=== PATIENT | male | born 1945 | race American Indian/Alaskan Native ===

== ENCOUNTER 2018-06-04 11:02 | Observation (INO) | payer MEDICARE ==
--- NOTE | 2018-06-04 12:02 | Emergency Department Report ---
HPI - General Chief Complaint: Chest Pain Time Seen by Provider: 06/04/18 11:36 - HPI HPI: Room 7 The patient is a 72-year-old male presenting with a chief complaint of chest pain. The patient states he developed left-sided chest pain that is sharp in n ature last night. Patient admits to shortness of breath, nausea/vomiting and diaphoresis with his chest pain. The patient states he took nitroglycerin which helped somewhat. Patient appears confused and is not oriented to place or year. Patient is oriented to self Location: Chest Duration: Intermittent since last night Quality: Sharp Severity: Moderate Modifying factors: [see above] Context: [see above] Mode of transportation: [not driving] ED Past Medical Hx - Past Medical History Hx Hypertension: Yes Hx CVA: Yes Hx Diabetes: Yes - Surgical History Past Surgical History?: No - Family History Family history: no significant - Social History Smoking Status: Never Smoker Substance Use Type: None - Medications Home Medications: Home Medications Medication Instructions Recorded Confirmed Last Taken Type Aspirin [Aspirin BABY CHEW TAB] 81 mg PO QDAY 06/04/18 06/04/18 Unknown History Lisinopril [Zestril TAB] 10 mg PO QDAY 06/04/18 06/04/18 Unknown History Metoprolol [Lopressor] 12.5 mg PO BID 06/04/18 06/04/18 Unknown History metFORMIN [Glucophage] 500 mg PO BIDWM 06/04/18 06/04/18 Unknown History ED Review of Systems ROS: Stated complaint: ALTERED Other details as noted in HPI Constitutional: diaphoresis Eyes: denies: eye pain ENT: denies: throat pain Respiratory: shortness of breath Cardiovascular: chest pain Endocrine: no symptoms reported Gastrointestinal: nausea, vomiting Musculoskeletal: denies: back pain Neurological: confusion. denies: headache Physical Exam - Physical Exam Vital Signs: Vital Signs 06/04/18 06/04/18 06/04/18 11:47 11:52 11:53 Temperature 98.5 F 98.5 F Pulse Rate 60 88 Respiratory 20 20 20 Rate Blood Pressure 118/61 Blood Pressure 118/61 [Left] O2 Sat by Pulse 100 100 100 Oximetry Physical Exam: GENERAL: The patient is well-developed well-nourished male lying on stretcher not appearing to be in acute distress. [] HEENT: Normocephalic. Atraumatic. Extraocular motions are intact. Patient has moist mucous membranes. NECK: Supple. Trachea midline CHEST/LUNGS: Clear to auscultation. There is no respiratory distress noted. HEART/CARDIOVASCULAR: Regular. There is no tachycardia. There is no gallop rub or murmur. ABDOMEN: Abdomen is soft, nontender. Patient has normal bowel sounds. There is no abdominal distention. SKIN: There is no rash. There is no edema. There is no diaphoresis. NEURO: The patient is awake, alert, and oriented. The patient is cooperative. The patient has no focal neurologic deficits. The patient has normal speech. Cranial nerves II through XII grossly intact MUSCULOSKELETAL: There is no evidence of acute injury. ED Course Vital Signs 06/04/18 06/04/18 06/04/18 11:47 11:52 11:53 Temperature 98.5 F 98.5 F Pulse Rate 60 88 Respiratory 20 20 20 Rate Blood Pressure 118/61 Blood Pressure 118/61 [Left] O2 Sat by Pulse 100 100 100 Oximetry ED Medical Decision Making - Lab Data Result diagrams: 06/04/18 12:01 06/04/18 12:01 Laboratory Tests 06/04/18 06/04/18 06/04/18 12:01 12:01 12:01 WBC 5.2 RBC 4.20 Hgb 13.8 Hct 40.9 MCV 98 H MCH 33 H MCHC 34 RDW 13.4 Plt Count 125 L Lymph % (Auto) 16.1 Oxford % (Auto) 11.1 H Eos % (Auto) 1.8 Baso % (Auto) 0.5 Lymph # 0.8 L Oxford # 0.6 Eos # 0.1 Baso # 0.0 Seg Neutrophils % 70.5 H Seg Neutrophils # 3.7 PT 14.4 INR 1.05 APTT 31.9 VBG pH Sodium 139 Potassium 4.6 Chloride 105.1 Carbon Dioxide 21 L Anion Gap 18 BUN 13 Creatinine 0.9 Estimated GFR > 60 BUN/Creatinine Ratio 14 Glucose 95 Calcium 9.1 Total Bilirubin 0.50 AST 20 ALT 14 Alkaline Phosphatase 45 Ammonia Total Creatine Kinase 158 CK-MB (CK-2) 4.5 H CK-MB (CK-2) Rel Index 2.8 Troponin T < 0.010 NT-Pro-B Natriuret Pep 307.4 Total Protein 7.2 Albumin 3.7 L Albumin/Globulin Ratio 1.1 06/04/18 06/04/18 12:01 12:07 WBC RBC Hgb Hct MCV MCH MCHC RDW Plt Count Lymph % (Auto) Oxford % (Auto) Eos % (Auto) Baso % (Auto) Lymph # Oxford # Eos # Baso # Seg Neutrophils % Seg Neutrophils # PT INR APTT VBG pH 7.482 H Sodium Potassium Chloride Carbon Dioxide Anion Gap BUN Creatinine Estimated GFR BUN/Creatinine Ratio Glucose Calcium Total Bilirubin AST ALT Alkaline Phosphatase Ammonia 32.0 Total Creatine Kinase CK-MB (CK-2) CK-MB (CK-2) Rel Index Troponin T NT-Pro-B Natriuret Pep Total Protein Albumin Albumin/Globulin Ratio - EKG Data -: EKG Interpreted by Me EKG shows normal: sinus rhythm Rate: bradycardia (54 bpm) - EKG Data When compared to previous EKG there are: previous EKG unavailable Interpretation: nonspecific ST-T wave kenny (T-wave inversion in lead 3, aVF) - Radiology Data Radiology results: report reviewed (chest x-ray, CT head), image reviewed (chest x-ray, CT head) interpreted by me: Chest [id number] left hemidiaphragm. No pneumothorax [facility] [address] [place] [address] XRay Report Signed Patient: ALEN DOSHI MR#: [id number] : 1945 Acct:[id number] Age/Sex: 72 / M ADM Date: 06/04/18 Loc: ED Attending Dr: Ordering Physician: SYEDA ANAYA MD Date of Service: 06/04/18 Procedure(s): XR chest 1V ap Accession Number(s): [id number] cc: SYEDA ANAYA MD Fluoro Time In Minutes: AP CHEST: HISTORY: chest pain No comparison. Mild hypoventilatory changes are suspected in the lower lung zones. The upper lung zones are clear. No pleural fluid or pneumothorax. Normal heart and mediastinal structures. IMPRESSION: Mild bibasilar atelectatic changes are suspected. No acute cardiopulmonary process. Transcribed By: TTR Dictated By: YO NICK JR, MD Electronically Authenticated By: YO NICK JR, MD Signed Date/Time: 06/04/18 1246 DD/ 1245 TD/TT: 06/04/18 1246 [facility] [address] [place] [address] Cat Scan Report Signed Patient: ALEN DOSHI MR#: [id number] : 1945 Acct:[id number] Age/Sex: 72 / M ADM Date: 06/04/18 Loc: ED Attending Dr: Ordering Physician: SYEDA ANAYA MD Date of Service: 06/04/18 Procedure(s): CT head/brain wo con Accession Number(s): [id number] cc: SYEDA ANAYA MD PROCEDURE: CT HEAD/BRAIN WO CON TECHNIQUE: Computerized tomography of the head was performed without contrast material. Coronal and sagittal reformatted images were provided. CT DOSE LENGTH PRODUCT: 1035.5 mGy-cm. HISTORY: confusion COMPARISONS: None currently available. FINDINGS: Decreased attenuation regions in the periventricular and subcortical white matter are nonspecific and may represent small vessel ischemic disease, encephalopathy, edema, or a demyelinating process. Small vessel ischemic disease (leukoaraiosis) favored. Small to moderate area of chronic encephalomalacia in the left parietal lobe probably related to prior ischemia. Smaller similar finding noted within the right frontal parietal region. Vascular calcifications. There is no evidence for acute ischemia. There is no hemorrhage. There is no midline shift. There is no hydrocephalus. There is no mass. Age appropriate frey-white matter attenuation is noted. There is no calvarial fracture. The temporal bones demonstrate aerated mastoid air cells. The middle ears appear unremarkable. Paranasal sinuses are unremarkable. Globes are intact. IMPRESSION: * No acute intracranial findings. * Chronic ischemic disease. This document is electronically signed by Rafita Royal MD., June 04 2018 02:02:14 PM ET Transcribed By: TYM Dictated By: RAFITA ROYAL MD Electronically Authenticated By: RAFITA ROYAL MD Signed Date/Time: 06/04/18 1404 DD/ 1312 TD/TT: 06/04/18 131 - Differential Diagnosis ACS, pericarditis, GERD, ICH Critical care attestation.: If time is entered above; I have spent that time in minutes in the direct care of this critically ill patient, excluding procedure time. ED Disposition Clinical Impression: Chest pain Disposition: DC-09 OP ADMIT IP TO THIS HOSP Is pt being admited?: Yes Does the pt Need Aspirin: Yes Condition: Fair Instructions: Chest Pain (ED) Referrals: [facility] [Other] - 3-5 Days Time of Disposition: 14:15 (hospitalist paged (Dr Sheehan))
[2018-06-04 12:17] LABS: Basophils % (Auto) 0.5 % (0.0-1.8); Eosinophils # (Auto) 0.1 K/mm3 (0.0-0.4); Eosinophils % (Auto) 1.8 % (0.0-4.3); Hematocrit 40.9 % (35.5-45.6); Hemoglobin 13.8 gm/dl (11.8-15.2); Lymphocytes # (Auto) 0.8 K/mm3 (1.2-5.4); Lymphocytes % (Auto) 16.1 % (13.4-35.0); Mean Corpuscular HGB Conc 34 % (32-34); Mean Corpuscular Volume 98 fl (84-94); Monocytes # (Auto) 0.6 K/mm3 (0.0-0.8); Monocytes % (Auto) 11.1 % (0.0-7.3); Platelet Count 125 K/mm3 (140-440); Red Cell Distribution Width 13.4 % (13.2-15.2)
[2018-06-04 12:28] LABS: INR 1.05 (0.87-1.13)
[2018-06-04 12:29] LABS: Partial Thromboplastin Time 31.9 Sec. (24.2-36.6)
[2018-06-04 12:50] LABS: Creatine Kinase MB 4.5 ng/mL (0.0-4.0)
--- NOTE | 2018-06-04 12:50 | XRay Report ---
AP CHEST: HISTORY: chest pain No comparison. Mild hypoventilatory changes are suspected in the lower lung zones. The upper lung zones are clear. No pleural fluid or pneumothorax. Normal heart and mediastinal structures. IMPRESSION: Mild bibasilar atelectatic changes are suspected. No acute cardiopulmonary process.
[2018-06-04 12:51] LABS: Alanine Aminotransferase 14 units/L (7-56); Albumin 3.7 g/dL (3.9-5); BUN/Creatinine Ratio 14; Blood Urea Nitrogen 13 mg/dL (9-20); Calcium 9.1 mg/dL (8.4-10.2); Hemolysis Index 64
--- NOTE | 2018-06-04 14:04 | Cat Scan Report ---
PROCEDURE: CT HEAD/BRAIN WO CON TECHNIQUE: Computerized tomography of the head was performed without contrast material. Coronal and s agittal reformatted images were provided. CT DOSE LENGTH PRODUCT: 1035.5 mGy-cm. HISTORY: confusion COMPARISONS: None currently available. FINDINGS: Decreased attenuation regions in the periventricular and subcortical white matter are nonspecific and may represent small vessel ischemic disease, encephalopathy, edema, or a demyelinating process. Smal l vessel ischemic disease (leukoaraiosis) favored. Small to moderate area of chronic encephalomalacia in the left parietal lobe probably related to prio r ischemia. Smaller similar finding noted within the right frontal parietal region. Vascular calcifications. There is no evidence for acute ischemia. There is no hemorrhage. There is no midline shift. There is no hydrocephalus. There is no mass. Age appropriate frey-white matter attenuation is noted. There is no calvarial fracture. The temporal bones demonstrate aerated mastoid air cells. The middle ears appear unremarkable. Paranasal sinuses are unremarkable. Globes are intact. IMPRESSION: * No acute intracranial findings. * Chronic ischemic disease. This document is electronically signed by Rafita Bender MD., June 04 2018 02:02:14 PM ET
[2018-06-04] MEDS ORDERED: ASPIRIN PO ONE (14:16)
[2018-06-04 14:28] LABS: Bilirubin,Urine NEG (Negative); Blood,Urine NEG (Negative); Color,Urine Yellow (Yellow); Protein,Urine <15 mg/dL mg/dL (Negative); WBC,Urine < 1.0 /HPF (0.0-6.0)
[2018-06-04] MEDS ORDERED: ZOFRAN IV ONE (16:15)
[2018-06-04] MEDS ORDERED: NORCO 5/325 PO ONE (16:16)
[2018-06-04] MEDS ORDERED: ASPIRIN ONE ×2 (16:25→16:46)
[2018-06-04] MEDS ORDERED: NORCO 5/325 ONE ×2 (16:25→16:47)
[2018-06-04] MEDS ORDERED: ZOFRAN ONE (16:30)
--- NOTE | 2018-06-04 22:26 | History and Physical Report ---
History of Present Illness Date of examination: 06/04/18 Date of admission: 06/04/18 14:21 Chief complaint: Chest pain since last night History of present illness: The patient is a 72-year-old male presenting with a chief complaint of chest pain. The patient states he developed left-sided chest pain that is sharp in nature last night. Patient admits to shortness of breath, nausea/vomiting and diaphoresis with his chest pain. The patient states he took nitroglycerin which helped somewhat. Patient appears confused and is not oriented to place or year. Patient is oriented to self Past Medical History Hypertension: Yes CVA: Yes Diabetes: Yes Surgical History Past Surgical History?: No Family History Family history: no significant Social History Smoking Status: Never Smoker Substance Use Type: None Medications Home Medications: Home Medications Medication Instructions Recorded Confirmed Last Taken Type Aspirin [Aspirin BABY CHEW TAB] 81 mg PO QDAY 06/04/18 06/04/18 Unknown History Lisinopril [Zestril TAB] 10 mg PO QDAY 06/04/18 06/04/18 Unknown History Metoprolol [Lopressor] 12.5 mg PO BID 06/04/18 06/04/18 Unknown History metFORMIN [Glucophage] 500 mg PO BIDWM 06/04/18 06/04/18 Unknown History Review of Systems ROS: Stated complaint: ALTERED Other details as noted in HPI Constitutional: diaphoresis Eyes: denies: eye pain ENT: denies: throat pain Respiratory: shortness of breath Cardiovascular: chest pain Endocrine: no symptoms reported Gastrointestinal: nausea, vomiting Musculoskeletal: denies: back pain Neurological: confusion. denies: headache Medications and Allergies Allergies Allergy/AdvReac Type Severity Reaction Status Date / Time No Known Allergies Allergy Unverified 06/04/18 11:44 Home Medications Medication Instructions Recorded Confirmed Last Taken Type Aspirin [Aspirin BABY CHEW TAB] 81 mg PO QDAY 06/04/18 06/04/18 Unknown History Lisinopril [Zestril TAB] 10 mg PO QDAY 06/04/18 06/04/18 Unknown History Metoprolol [Lopressor] 12.5 mg PO BID 06/04/18 06/04/18 Unknown History metFORMIN [Glucophage] 500 mg PO BIDWM 06/04/18 06/04/18 Unknown History Exam - Constitutional Vitals: Temp Pulse Resp BP Pulse Ox 98.3 F 63 20 117/63 98 06/04/18 20:30 06/04/18 20:30 06/04/18 20:30 06/04/18 20:30 06/04/18 20:30 General appearance: Present: no acute distress, well-nourished - EENT Eyes: Present: PERRL ENT: hearing intact, clear oral mucosa - Neck Neck: Present: supple, normal ROM - Respiratory Respiratory effort: normal Respiratory: bilateral: CTA - Cardiovascular Heart rate: 54 Rhythm: regular Heart Sounds: Present: S1 & S2. Absent: rub, click - Extremities Extremities: no ischemia, pulses intact, pulses symmetrical, No edema Peripheral Pulses: within normal limits - Abdominal General gastrointestinal: Present: soft, non-tender, non-distended, normal bowel sounds Male genitourinary: Present: normal - Rectal Rectal Exam: deferred - Integumentary Integumentary: Present: clear, warm, dry - Musculoskeletal Musculoskeletal: gait normal, strength equal bilaterally - Psychiatric Psychiatric: appropriate mood/affect, intact judgment & insight - Neurologic Neurologic: CNII-XII intact, moves all extremities - Allied Health Allied health notes reviewed: nursing, case management Results - Labs CBC & Chem 7: 06/04/18 12:01 06/04/18 12:01 Labs: Laboratory Last Values WBC 5.2 K/mm3 (4.5-11.0) 06/04/18 12:01 RBC 4.20 M/mm3 (3.65-5.03) 06/04/18 12:01 Hgb 13.8 gm/dl (11.8-15.2) 06/04/18 12:01 Hct 40.9 % (35.5-45.6) 06/04/18 12:01 MCV 98 fl (84-94) H 06/04/18 12:01 MCH 33 pg (28-32) H 06/04/18 12:01 MCHC 34 % (32-34) 06/04/18 12:01 RDW 13.4 % (13.2-15.2) 06/04/18 12:01 Plt Count 125 K/mm3 (140-440) L 06/04/18 12:01 Lymph % (Auto) 16.1 % (13.4-35.0) 06/04/18 12:01 Ashley % (Auto) 11.1 % (0.0-7.3) H 06/04/18 12:01 Eos % (Auto) 1.8 % (0.0-4.3) 06/04/18 12:01 Baso % (Auto) 0.5 % (0.0-1.8) 06/04/18 12:01 Lymph # 0.8 K/mm3 (1.2-5.4) L 06/04/18 12:01 Ashley # 0.6 K/mm3 (0.0-0.8) 06/04/18 12:01 Eos # 0.1 K/mm3 (0.0-0.4) 06/04/18 12:01 Baso # 0.0 K/mm3 (0.0-0.1) 06/04/18 12:01 Seg Neutrophils % 70.5 % (40.0-70.0) H 06/04/18 12:01 Seg Neutrophils # 3.7 K/mm3 (1.8-7.7) 06/04/18 12:01 PT 14.4 Sec. (12.2-14.9) 06/04/18 12:01 INR 1.05 (0.87-1.13) 06/04/18 12:01 APTT 31.9 Sec. (24.2-36.6) 06/04/18 12:01 VBG pH 7.482 (7.320-7.420) H 06/04/18 12:07 Sodium 139 mmol/L (137-145) 06/04/18 12:01 Potassium 4.6 mmol/L (3.6-5.0) 06/04/18 12:01 Chloride 105.1 mmol/L (98-107) 06/04/18 12:01 Carbon Dioxide 21 mmol/L (22-30) L 06/04/18 12:01 Anion Gap 18 mmol/L 06/04/18 12:01 BUN 13 mg/dL (9-20) 06/04/18 12:01 Creatinine 0.9 mg/dL (0.8-1.5) 06/04/18 12:01 Estimated GFR > 60 ml/min 06/04/18 12:01 BUN/Creatinine Ratio 14 % 06/04/18 12:01 Glucose 95 mg/dL (75-100) 06/04/18 12:01 Calcium 9.1 mg/dL (8.4-10.2) 06/04/18 12:01 Total Bilirubin 0.50 mg/dL (0.1-1.2) 06/04/18 12:01 AST 20 units/L (5-40) 06/04/18 12:01 ALT 14 units/L (7-56) 06/04/18 12:01 Alkaline Phosphatase 45 units/L (35-129) 06/04/18 12:01 Ammonia 32.0 umol/L (25-60) 06/04/18 12:01 Total Creatine Kinase 158 units/L (55-170) 06/04/18 12:01 CK-MB (CK-2) 4.5 ng/mL (0.0-4.0) H 06/04/18 12:01 CK-MB (CK-2) Rel Index 2.8 (0-4) 06/04/18 12:01 Troponin T < 0.010 ng/mL (0.00-0.029) 06/04/18 12:01 NT-Pro-B Natriuret Pep 307.4 pg/mL (0-900) 06/04/18 12:01 Total Protein 7.2 g/dL (6.3-8.2) 06/04/18 12:01 Albumin 3.7 g/dL (3.9-5) L 06/04/18 12:01 Albumin/Globulin Ratio 1.1 % 06/04/18 12:01 Urine Color Yellow (Yellow) 06/04/18 14:15 Urine Turbidity Clear (Clear) 06/04/18 14:15 Urine pH 5.0 (5.0-7.0) 06/04/18 14:15 Ur Specific Epworth 1.018 (1.003-1.030) 06/04/18 14:15 Urine Protein <15 mg/dl mg/dL (Negative) 06/04/18 14:15 Urine Glucose (UA) Neg mg/dL (Negative) 06/04/18 14:15 Urine Ketones Neg mg/dL (Negative) 06/04/18 14:15 Urine Blood Neg (Negative) 06/04/18 14:15 Urine Nitrite Neg (Negative) 06/04/18 14:15 Urine Bilirubin Neg (Negative) 06/04/18 14:15 Urine Urobilinogen 2.0 mg/dL (<2.0) 06/04/18 14:15 Ur Leukocyte Esterase Neg (Negative) 06/04/18 14:15 Urine WBC (Auto) < 1.0 /HPF (0.0-6.0) 06/04/18 14:15 Urine RBC (Auto) 1.0 /HPF (0.0-6.0) 06/04/18 14:15 Short CBC 06/04/18 Range/Units 12:01 WBC 5.2 (4.5-11.0) K/mm3 Hgb 13.8 (11.8-15.2) gm/dl Hct 40.9 (35.5-45.6) % Plt Count 125 L (140-440) K/mm3 BMP 06/04/18 12:01 Sodium 139 Potassium 4.6 Chloride 105.1 Carbon Dioxide 21 L BUN 13 Creatinine 0.9 Glucose 95 Calcium 9.1 Cardiac Enzymes 06/04/18 Range/Units 12:01 Total Creatine Kinase 158 (55-170) units/L CK-MB (CK-2) 4.5 H (0.0-4.0) ng/mL Troponin T < 0.010 (0.00-0.029) ng/mL Liver Function 06/04/18 Range/Units 12:01 Total Bilirubin 0.50 (0.1-1.2) mg/dL AST 20 (5-40) units/L ALT 14 (7-56) units/L Alkaline Phosphatase 45 (35-129) units/L Albumin 3.7 L (3.9-5) g/dL Urine 06/04/18 Range/Units 14:15 Urine Color Yellow (Yellow) Urine pH 5.0 (5.0-7.0) Ur Specific Epworth 1.018 (1.003-1.030) Urine Protein <15 mg/dl (Negative) mg/dL Urine Glucose (UA) Neg (Negative) mg/dL Short CBC 06/04/18 Range/Units 12:01 WBC 5.2 (4.5-11.0) K/mm3 Hgb 13.8 (11.8-15.2) gm/dl Hct 40.9 (35.5-45.6) % Plt Count 125 L (140-440) K/mm3 BMP 06/04/18 12:01 Sodium 139 Potassium 4.6 Chloride 105.1 Carbon Dioxide 21 L BUN 13 Creatinine 0.9 Glucose 95 Calcium 9.1 Cardiac Enzymes 06/04/18 06/04/18 Range/Units 12:01 23:26 Total Creatine Kinase 158 (55-170) units/L CK-MB (CK-2) 4.5 H (0.0-4.0) ng/mL Troponin T < 0.010 0.015 (0.00-0.029) ng/mL Liver Function 06/04/18 Range/Units 12:01 Total Bilirubin 0.50 (0.1-1.2) mg/dL AST 20 (5-40) units/L ALT 14 (7-56) units/L Alkaline Phosphatase 45 (35-129) units/L Albumin 3.7 L (3.9-5) g/dL Urine 06/04/18 Range/Units 14:15 Urine Color Yellow (Yellow) Urine pH 5.0 (5.0-7.0) Ur Specific Epworth 1.018 (1.003-1.030) Urine Protein <15 mg/dl (Negative) mg/dL Urine Glucose (UA) Neg (Negative) mg/dL - Imaging and Cardiology EKG: report reviewed (NSR 54/min.No acute changes LVH) Chest x-ray: report reviewed CT Scan - head: report reviewed Imaging and Cardiology: CXR IMPRESSION: Mild bibasilar atelectatic changes are suspected. No acute cardiopulmonary process. CT Head IMPRESSION: * No acute intracranial findings. * Chronic ischemic disease. Assessment and Plan Advance Directives: Yes (Full code) VTE prophylaxis?: Chemical Plan of care discussed with patient/family: Yes - Patient Problems (1) Chest pain Current Visit: Yes Status: Acute Qualifiers: Chest pain type: unspecified Qualified Code(s): R07.9 - Chest pain, unspecified Plan to address problem: Chest pain r/o HI Lexiscan in AM Serial Troponins Diff diagnosis of Costochondritis and GERD (2) HTN (hypertension) Current Visit: Yes Status: Chronic Qualifiers: Hypertension type: essential hypertension Qualified Code(s): I10 - Essential (primary) hypertension Plan to address problem: Cont antihypertensives (3) T2DM (type 2 diabetes mellitus) Current Visit: Yes Status: Chronic Qualifiers: Diabetes mellitus shelter insulin use: without shelter use Plan to address problem: Well controlled A1c 6.2 Coverage for now and cont hme Hypoglycemics (4) DVT prophylaxis Current Visit: Yes Status: Acute Plan to address problem: On Lovenox and GI prophylaxis
[2018-06-04] MEDS ORDERED: TYLENOL PO PRN (22:30)
[2018-06-04] MEDS ORDERED: SODIUM CHLORIDE FLUSH SYRINGE 10 ML IV PRN (22:30)
[2018-06-04] MEDS ORDERED: ZOFRAN IV PRN (22:30)
[2018-06-04] MEDS ORDERED: DILAUDID IV PRN (22:40)
[2018-06-04] MEDS ORDERED: PERCOCET 5/325 PO PRN (22:40)
[2018-06-05] MEDS: GLUCOPHAGE PO SCH ×2 (01:28→08:56)
[2018-06-05] MEDS: PEPCID IV SCH ×2 (01:29→09:59)
[2018-06-05 07:23] LABS: Basophils % (Auto) 0.6 % (0.0-1.8); Eosinophils # (Auto) 0.1 K/mm3 (0.0-0.4); Eosinophils % (Auto) 2.1 % (0.0-4.3); Hematocrit 39.4 % (35.5-45.6); Hemoglobin 13.4 gm/dl (11.8-15.2); Lymphocytes % (Auto) 21.5 % (13.4-35.0); Mean Corpuscular HGB Conc 34 % (32-34); Mean Corpuscular Volume 98 fl (84-94); Monocytes # (Auto) 0.6 K/mm3 (0.0-0.8); Monocytes % (Auto) 12.8 % (0.0-7.3); Platelet Count 115 K/mm3 (140-440); Red Blood Count 4.03 M/mm3 (3.65-5.03)
[2018-06-05] MEDS ORDERED: HumaLOG SUB-Q SCH (07:30)
[2018-06-05 07:44] LABS: Alanine Aminotransferase 14 units/L (7-56); Albumin 3.7 g/dL (3.9-5); BUN/Creatinine Ratio 14; Blood Urea Nitrogen 15 mg/dL (9-20); Calcium 8.9 mg/dL (8.4-10.2); Hemolysis Index 13
[2018-06-05 09:03] VITALS: BP 122/73
--- NOTE | 2018-06-05 09:43 | Discharge Summary ---
Providers - Providers Date of Admission: 06/04/18 14:21 Date of discharge: 06/05/18 Attending physician: VANDANA HUANG Nephrology Hospitalization Condition: Fair Hospital course: Refused Lexiscan and wants to go home. His troponins were negative Wants to sigm AMA if he is not allowed to go home was explained the disadvantages of nf not doing lexiscan. Disposition: DC- TO HOME OR SELFCARE - Discharge Diagnoses (1) Chest pain Status: Acute Qualifiers: (2) HTN (hypertension) Status: Chronic Qualifiers: Hypertension type: essential hypertension Qualified Code(s): I10 - Essential (primary) hypertension (3) T2DM (type 2 diabetes mellitus) Status: Chronic Qualifiers: Diabetes mellitus intermediate frame tender insulin use: without intermediate frame tender use Core Measure Documentation - Palliative Care Palliative Care/ Comfort Measures: Not Applicable - Core Measures Any of the following diagnoses?: none Exam - Constitutional Vitals: Temp Pulse Resp BP Pulse Ox 98.4 F 61 19 122/73 93 06/05/18 07:40 06/05/18 04:13 06/05/18 08:05 06/05/18 07:40 06/05/18 04:13 General appearance: Present: no acute distress, well-nourished - EENT Eyes: Present: PERRL ENT: hearing intact, clear oral mucosa - Neck Neck: Present: supple, normal ROM - Respiratory Respiratory effort: normal Respiratory: bilateral: CTA - Cardiovascular Heart rate: 78 Rhythm: regular Heart Sounds: Present: S1 & S2. Absent: rub, click - Extremities Extremities: pulses symmetrical, No edema Peripheral Pulses: within normal limits - Abdominal General gastrointestinal: Present: soft, non-tender, non-distended, normal bowel sounds Male genitourinary: Present: normal - Integumentary Integumentary: Present: clear, warm, dry - Musculoskeletal Musculoskeletal: gait normal, strength equal bilaterally - Psychiatric Psychiatric: appropriate mood/affect, intact judgment & insight - Neurologic Neurologic: CNII-XII intact, moves all extremities - Allied Health Allied health notes reviewed: nursing, case management Plan Activity: no restrictions Diet: low fat, low cholesterol, low salt [facility] [Other] - 3-5 Days
[2018-06-05] MEDS ORDERED: BABY ASPIRIN PO SCH (10:00)
[2018-06-05] MEDS ORDERED: SODIUM CHLORIDE FLUSH SYRINGE 10 ML IV SCH (10:00)
[2018-06-05] MEDS ORDERED: LOPRESSOR PO SCH (10:00)
[2018-06-05] MEDS ORDERED: ZESTRIL PO SCH (10:00)
== END 2018-06-05 10:29 | disposition home or self-care (01) ==
LOC: ED 11:02 → 4A 14:21
PROVIDERS: ADMIT Internal Medicine; ATTEND Internal Medicine
DX: R07.89 Other chest pain (principal); I10 Essential (primary) hypertension; E11.9 Type 2 diabetes mellitus without complications; Z86.73 Personal history of transient ischemic attack (TIA), and cerebral infarction without residual deficits; Z79.82 Long term (current) use of aspirin; Z79.899 Other long term (current) drug therapy; I67.82 Cerebral ischemia
CPT/HCPCS: 36415; 70450; 71045; 80053; 81001; 82140; 82550; 82553; 82805; 82962; 83036; 83880; 84484; 85025; 85610; 85730; 93005; 93010; 96374; 99284; G0378; J2405

== ENCOUNTER 2018-06-12 08:25 | Inpatient (IN) | payer MEDICARE ==
[2018-06-12] MEDS ORDERED: ASPIRIN PO ONE (10:15)
[2018-06-12] MEDS ORDERED: ALUM-MAG HYDROX-SIMETH 200-200-20MG/5ML PO ONE (10:16)
--- NOTE | 2018-06-12 10:22 | Emergency Department Report ---
ED Chest Pain HPI - General Chief Complaint: Chest Pain Stated Complaint: CHEST PAIN Time Seen by Provider: 06/12/18 10:10 Source: patient, EMS Mode of arrival: Wheelchair Limitations: Other - History of Present Illness Initial Comments: Mr. Soto is a 72 yo male with hx of DM, HTN who presents with persistent sharp left-sided chest pain since last night. Pain has been persistent sharp left- sided moderately severe. Patient is a poor historian. Says yes to most questions. Gives limited hx. Unable to report with home he lives. Recently discharged after observation from this hospital 7 days ago June 05 for chest pain evaluation. Arrived via EMS. Complaint: chest pain -: Gradual, Last night Onset: during rest Pain Location: left chest Pain Radiation: none Severity: moderate Quality: sharp Consistency: constant Improves With: nothing Worsens With: nothing Context: recent illness, other (hospitalized and discharged 7 days ago according to electronic medical record) - Related Data Home Medications Medication Instructions Recorded Confirmed Last Taken Metoprolol [Lopressor TAB] 12.5 mg PO BID 06/04/18 06/04/18 Unknown Previous Rx's Medication Instructions Recorded Last Taken Type Aspirin [Aspirin BABY CHEW TAB] 81 mg PO QDAY tab.chew 06/05/18 Unknown Rx Lisinopril [Zestril TAB] 10 mg PO QDAY tablet 06/05/18 Unknown Rx Lispro Insulin [Humalog] 0 unit SUB-Q ACHS units 06/05/18 Unknown Rx Metoprolol [Lopressor TAB] 12.5 mg PO BID tablet 06/05/18 Unknown Rx metFORMIN [Glucophage] 500 mg PO BIDDIAB tablet 06/05/18 Unknown Rx Allergies Allergy/AdvReac Type Severity Reaction Status Date / Time No Known Allergies Allergy Unverified 06/04/18 11:44 Heart Score - HEART Score History: Slightly suspicious EKG: Non-specific Age: > 65 Risk factors: 1-2 risk factors Troponin: < normal limit HEART Score: 4 ED Review of Systems ROS: Stated complaint: CHEST PAIN Other details as noted in HPI Comment: All other systems reviewed and negative Constitutional: denies: fever, malaise Respiratory: denies: cough Cardiovascular: chest pain ED Past Medical Hx - Past Medical History Previous Medical History?: Yes Hx Hypertension: Yes Hx CVA: Yes Hx Diabetes: Yes - Social History Smoking Status: Former Smoker Substance Use Type: None - Medications Home Medications: Home Medications Medication Instructions Recorded Confirmed Last Taken Type Metoprolol [Lopressor TAB] 12.5 mg PO BID 06/04/18 06/04/18 Unknown History Aspirin [Aspirin BABY CHEW TAB] 81 mg PO QDAY tab.chew 06/05/18 Unknown Rx Lisinopril [Zestril TAB] 10 mg PO QDAY tablet 06/05/18 Unknown Rx Lispro Insulin [Humalog] 0 unit SUB-Q ACHS units 06/05/18 Unknown Rx Metoprolol [Lopressor TAB] 12.5 mg PO BID tablet 06/05/18 Unknown Rx metFORMIN [Glucophage] 500 mg PO BIDDIAB tablet 06/05/18 Unknown Rx ED Physical Exam - General Limitations: Other General appearance: alert, in no apparent distress, other (sleeping comfortably, easily arousable, elderly frail) - Head Head exam: Present: atraumatic, normocephalic - Eye Eye exam: Present: normal appearance - ENT ENT exam: Present: mucous membranes moist - Neck Neck exam: Present: normal inspection, full ROM - Respiratory Respiratory exam: Present: normal lung sounds bilaterally. Absent: respiratory distress, wheezes, rales, rhonchi - Cardiovascular Cardiovascular Exam: Present: regular rate, normal rhythm, normal heart sounds. Absent: systolic murmur, diastolic murmur, rubs, gallop - GI/Abdominal GI/Abdominal exam: Present: soft, normal bowel sounds. Absent: distended, tenderness, guarding, rebound - Rectal Rectal exam: Present: deferred - Extremities Exam Extremities exam: Present: normal inspection - Back Exam Back exam: Present: normal inspection - Neurological Exam Neurological exam: Present: alert, other (oriented to name only) - Psychiatric Psychiatric exam: Present: normal affect, normal mood - Skin Skin exam: Present: warm, dry, intact, normal color. Absent: rash ED Course Vital Signs 06/12/18 06/12/18 06/12/18 09:00 09:15 09:30 Temperature Pulse Rate 66 57 L 59 L Respiratory 18 20 19 Rate Blood Pressure 104/62 104/64 O2 Sat by Pulse 96 96 95 Oximetry 06/12/18 09:36 Temperature 98.1 F Pulse Rate Respiratory Rate Blood Pressure O2 Sat by Pulse Oximetry ED Medical Decision Making - Lab Data Result diagrams: 06/12/18 10:32 06/12/18 10:32 - EKG Data -: EKG Interpreted by Me - EKG Data Interpretation: no acute changes 06/12/18 11:06 EKG obtained 1052 Normal sinus rhythm rate 60 beats a minute axis normal intervals no ST elevation diffuse T-wave flattening biphasic T waves in the inferior leads 06/12/18 11:08 EKG is unchanged from 06/04/2018 - Radiology Data Radiology results: report reviewed AP portable chest: No acute process according to radiology report - Medical Decision Making Mr. Soto is a 72-year-old male who presents with chest pain persistent since last night. Chest pain is atypical for ACS. However he does have risk factors including hypertension and diabetes. According to electronic medical record, he is new to our healthcare system. I am concerned for possible dementia. Admitted to hospitalist service for further treatment and evaluation. I provided bridging orders. Critical care attestation.: If time is entered above; I have spent that time in minutes in the direct care of this critically ill patient, excluding procedure time. ED Disposition Clinical Impression: Chest pain Disposition: OP ADMIT IP TO THIS HOSP Is pt being admited?: Yes Does the pt Need Aspirin: No Condition: Stable
--- NOTE | 2018-06-12 10:49 | XRay Report ---
Single view chest: Compared to 06/04/18. History: Chest pain. Findings: Cardiomegaly. Trachea is midline. No consolidation, pneumothorax or pleural effusion. Of impression: No acute cardiopulmonary findings.
[2018-06-12 11:03] LABS: Basophils % (Auto) 0.3 % (0.0-1.8); Eosinophils # (Auto) 0.1 K/mm3 (0.0-0.4); Hematocrit 41.2 % (35.5-45.6); Hemoglobin 13.9 gm/dl (11.8-15.2); Lymphocytes % (Auto) 13.2 % (13.4-35.0); Mean Corpuscular HGB Conc 34 % (32-34); Mean Corpuscular Volume 98 fl (84-94); Monocytes # (Auto) 0.7 K/mm3 (0.0-0.8); Monocytes % (Auto) 9.6 % (0.0-7.3); Platelet Count 145 K/mm3 (140-440); Red Blood Count 4.22 M/mm3 (3.65-5.03); Red Cell Distribution Width 13.1 % (13.2-15.2)
[2018-06-12 11:32] LABS: Alanine Aminotransferase 12 units/L (7-56); Albumin 3.6 g/dL (3.9-5); BUN/Creatinine Ratio 13; Blood Urea Nitrogen 13 mg/dL (9-20); Calcium 9.1 mg/dL (8.4-10.2); Hemolysis Index 14
--- NOTE | 2018-06-12 18:00 | History and Physical Report ---
History of Present Illness Date of examination: 06/12/18 Date of admission: 06/12/18 12:26 Chief complaint: Chest pain since last night History of present illness: 72-year-old male presenting with a chief complaint of chest pain since last night. The patient states he developed left-sided chest pain that is sharp in nature since last night. Patient admits to shortness of breath, nausea/vomiting and diaphoresis with his chest pain. The patient states he took nitroglycerin which helped somewhat. Patient appears confused and is not oriented to place or year. Patient is oriented to self. Patient was admitted 1 week ago for chest pain. He did not want the stress test to be done and left. This time patient is agreeable to do the stress test. Past Medical History Hypertension: Yes CVA: Yes Diabetes: Yes Surgical History Past Surgical History?: No Family History Family history: no significant Social History Smoking Status: Never Smoker Substance Use Type: None Review of Systems ROS: Stated complaint: ALTERED Other details as noted in HPI Constitutional: diaphoresis Eyes: denies: eye pain ENT: denies: throat pain Respiratory: shortness of breath Cardiovascular: chest pain Endocrine: no symptoms reported Gastrointestinal: nausea, vomiting Musculoskeletal: denies: back pain Neurological: confusion. denies: headache Medications and Allergies Allergies Allergy/AdvReac Type Severity Reaction Status Date / Time No Known Allergies Allergy Unverified 06/04/18 11:44 Home Medications Medication Instructions Recorded Confirmed Last Taken Type Aspirin [Aspirin BABY CHEW TAB] 81 mg PO QDAY 06/04/18 06/04/18 Unknown History Lisinopril [Zestril TAB] 10 mg PO QDAY 06/04/18 06/04/18 Unknown History Metoprolol [Lopressor] 12.5 mg PO BID 06/04/18 06/04/18 Unknown History metFORMIN [Glucophage] 500 mg PO BIDWM 06/04/18 06/04/18 Unknown History Medications and Allergies Allergies Allergy/AdvReac Type Severity Reaction Status Date / Time No Known Allergies Allergy Unverified 06/04/18 11:44 Home Medications Medication Instructions Recorded Confirmed Last Taken Type Aspirin [Aspirin BABY CHEW TAB] 81 mg PO QDAY tab.chew 06/05/18 06/12/18 Unknown Rx Lisinopril [Zestril TAB] 10 mg PO QDAY tablet 06/05/18 06/12/18 Unknown Rx Lispro Insulin [Humalog] 0 unit SUB-Q ACHS units 06/05/18 06/12/18 Unknown Rx Metoprolol [Lopressor TAB] 12.5 mg PO BID tablet 06/05/18 06/12/18 Unknown Rx metFORMIN [Glucophage] 500 mg PO BIDDIAB tablet 06/05/18 06/12/18 Unknown Rx Exam - Constitutional Vitals: Temp Pulse Resp BP Pulse Ox 98.2 F 59 L 20 143/81 96 06/12/18 16:06 06/12/18 16:06 06/12/18 16:06 06/12/18 16:06 06/12/18 16:06 General appearance: Present: no acute distress, well-nourished - EENT Eyes: Present: PERRL ENT: hearing intact, clear oral mucosa - Neck Neck: Present: supple, normal ROM - Respiratory Respiratory effort: normal Respiratory: bilateral: CTA - Cardiovascular Heart rate: 76 Rhythm: regular Heart Sounds: Present: S1 & S2. Absent: rub, click - Extremities Extremities: no ischemia, pulses intact, pulses symmetrical, No edema Peripheral Pulses: within normal limits - Abdominal General gastrointestinal: Present: soft, non-tender, non-distended, normal bowel sounds Male genitourinary: Present: normal - Integumentary Integumentary: Present: clear, warm, dry - Musculoskeletal Musculoskeletal: gait normal, strength equal bilaterally - Psychiatric Psychiatric: appropriate mood/affect, intact judgment & insight - Neurologic Neurologic: CNII-XII intact, moves all extremities - Allied Health Allied health notes reviewed: nursing, case management Results - Labs CBC & Chem 7: 06/12/18 10:32 06/12/18 10:32 Labs: Laboratory Last Values WBC 7.4 K/mm3 (4.5-11.0) 06/12/18 10:32 RBC 4.22 M/mm3 (3.65-5.03) 06/12/18 10:32 Hgb 13.9 gm/dl (11.8-15.2) 06/12/18 10:32 Hct 41.2 % (35.5-45.6) 06/12/18 10:32 MCV 98 fl (84-94) H 06/12/18 10:32 MCH 33 pg (28-32) H 06/12/18 10:32 MCHC 34 % (32-34) 06/12/18 10:32 RDW 13.1 % (13.2-15.2) L 06/12/18 10:32 Plt Count 145 K/mm3 (140-440) 06/12/18 10:32 Lymph % (Auto) 13.2 % (13.4-35.0) L 06/12/18 10:32 [place] % (Auto) 9.6 % (0.0-7.3) H 06/12/18 10:32 Eos % (Auto) 1.0 % (0.0-4.3) 06/12/18 10:32 Baso % (Auto) 0.3 % (0.0-1.8) 06/12/18 10:32 Lymph # 1.0 K/mm3 (1.2-5.4) L 06/12/18 10:32 [place] # 0.7 K/mm3 (0.0-0.8) 06/12/18 10:32 Eos # 0.1 K/mm3 (0.0-0.4) 06/12/18 10:32 Baso # 0.0 K/mm3 (0.0-0.1) 06/12/18 10:32 Seg Neutrophils % 75.9 % (40.0-70.0) H 06/12/18 10:32 Seg Neutrophils # 5.6 K/mm3 (1.8-7.7) 06/12/18 10:32 Sodium 142 mmol/L (137-145) 06/12/18 10:32 Potassium 3.8 mmol/L (3.6-5.0) 06/12/18 10:32 Chloride 106.2 mmol/L (98-107) 06/12/18 10:32 Carbon Dioxide 26 mmol/L (22-30) 06/12/18 10:32 14 mmol/L 06/12/18 10:32 BUN 13 mg/dL (9-20) 06/12/18 10:32 1.0 mg/dL (0.8-1.5) 06/12/18 10:32 Estimated GFR > 60 ml/min 06/12/18 10:32 13 % 06/12/18 10:32 Glucose 106 mg/dL (75-100) H 06/12/18 10:32 Calcium 9.1 mg/dL (8.4-10.2) 06/12/18 10:32 0.30 mg/dL (0.1-1.2) 06/12/18 10:32 AST 16 units/L (5-40) 06/12/18 10:32 ALT 12 units/L (7-56) 06/12/18 10:32 44 units/L (35-129) 06/12/18 10:32 < 0.010 ng/mL (0.00-0.029) 06/12/18 10:32 7.3 g/dL (6.3-8.2) 06/12/18 10:32 3.6 g/dL (3.9-5) L 06/12/18 10:32 1.0 % 06/12/18 10:32 Short CBC 06/12/18 Range/Units 10:32 WBC 7.4 (4.5-11.0) K/mm3 Hgb 13.9 (11.8-15.2) gm/dl Hct 41.2 (35.5-45.6) % Plt Count 145 (140-440) K/mm3 BMP 06/12/18 10:32 Sodium 142 Potassium 3.8 Chloride 106.2 Carbon Dioxide 26 BUN 13 Creatinine 1.0 Glucose 106 H Calcium 9.1 Cardiac Enzymes 06/12/18 Range/Units 10:32 Troponin T < 0.010 (0.00-0.029) ng/mL Liver Function 06/12/18 Range/Units 10:32 Total Bilirubin 0.30 (0.1-1.2) mg/dL AST 16 (5-40) units/L ALT 12 (7-56) units/L Alkaline Phosphatase 44 (35-129) units/L Albumin 3.6 L (3.9-5) g/dL - Imaging and Cardiology EKG: report reviewed (heart rate of 59, bradycardia, nonspecific ST-T wave abnormalities) Assessment and Plan Assessment and plan: (1) Chest pain Current Visit: Yes Status: Acute Qualifiers: Chest pain type: unspecified Qualified Code(s): R07.9 - Chest pain, unspecified Plan to address problem: Chest pain r/o AK Lexiscan in AM Patient refused Lexiscan last time on 06/05/2018 Serial Troponins Diff diagnosis of Costochondritis and GERD (2) HTN (hypertension) Current Visit: Yes Status: Chronic Qualifiers: Hypertension type: essential hypertension Qualified Code(s): I10 - Essential (primary) hypertension Plan to address problem: Cont antihypertensives (3) T2DM (type 2 diabetes mellitus) Current Visit: Yes Status: Chronic 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
[2018-06-12] MEDS ORDERED: MORPHINE IV PRN (18:13)
[2018-06-12] MEDS ORDERED: ZOFRAN IV PRN (18:13)
[2018-06-12] MEDS ORDERED: PERCOCET 5/325 PO PRN (18:13)
[2018-06-12] MEDS ORDERED: TYLENOL PO PRN (18:13)
[2018-06-12] MEDS ORDERED: SODIUM CHLORIDE FLUSH SYRINGE 10 ML IV PRN (18:13)
[2018-06-12] MEDS: ZESTRIL PO SCH (20:48)
[2018-06-12] MEDS: LOPRESSOR PO SCH (22:31)
[2018-06-12] MEDS: PEPCID PO SCH (22:32)
[2018-06-12] MEDS: HumaLOG SUB-Q SCH ×2 (22:32→22:33)
[2018-06-12] MEDS: SODIUM CHLORIDE FLUSH SYRINGE 10 ML IV SCH (22:33)
[2018-06-13 06:25] LABS: Basophils % (Auto) 0.4 % (0.0-1.8); Eosinophils # (Auto) 0.1 K/mm3 (0.0-0.4); Eosinophils % (Auto) 2.3 % (0.0-4.3); Hematocrit 41.1 % (35.5-45.6); Hemoglobin 13.9 gm/dl (11.8-15.2); Lymphocytes # (Auto) 1.2 K/mm3 (1.2-5.4); Lymphocytes % (Auto) 25.9 % (13.4-35.0); Mean Corpuscular HGB Conc 34 % (32-34); Mean Corpuscular Volume 98 fl (84-94); Monocytes # (Auto) 0.5 K/mm3 (0.0-0.8); Monocytes % (Auto) 11.8 % (0.0-7.3); Platelet Count 127 K/mm3 (140-440); Red Blood Count 4.22 M/mm3 (3.65-5.03); Red Cell Distribution Width 13.2 % (13.2-15.2)
[2018-06-13 06:52] LABS: Alanine Aminotransferase 12 units/L (7-56); Albumin 3.6 g/dL (3.9-5); BUN/Creatinine Ratio 12; Blood Urea Nitrogen 11 mg/dL (9-20); Hemolysis Index 5
[2018-06-13] MEDS: HumaLOG SUB-Q SCH ×6 (07:29→17:00)
[2018-06-13] MEDS ORDERED: GLUCOPHAGE PO SCH (08:00)
[2018-06-13] MEDS ORDERED: LEXISCAN IV ONE ×2 (08:24→08:29)
[2018-06-13] MEDS ORDERED: BABY ASPIRIN PO SCH (10:00)
[2018-06-13] MEDS: LOPRESSOR PO SCH (11:35)
[2018-06-13] MEDS: PEPCID PO SCH (11:35)
[2018-06-13] MEDS: ZESTRIL PO SCH (11:36)
[2018-06-13] MEDS: SODIUM CHLORIDE FLUSH SYRINGE 10 ML IV SCH (11:37)
--- NOTE | 2018-06-13 12:31 | Discharge Summary ---
Providers - Providers Date of Admission: 06/12/18 12:26 Date of discharge: 06/13/18 Attending physician: ETHEL STALLINGS MD 06/12/18 18:13 Consult to Physician [CONS] Routine Comment: called answ. serv. /bri Consulting Provider: ELIJAH BARR Physician Instructions: Reason For Exam: Chest pain Hospitalization Reason for admission: atypical chest pain Condition: Stable Pertinent studies: Cardiac stress test; negative for acute ischemia Hospital course: 72-year-old male presenting with a chief complaint of chest pain since last night. The patient states he developed left-sided chest pain that is sharp in nature since last night. Patient admits to shortness of breath, nausea/vomiting and diaphoresis with his chest pain. The patient states he took nitroglycerin which helped somewhat. Patient appears confused and is not oriented to place or year. Patient is oriented to self. Patient was admitted 1 week ago for chest pain. He did not want the stress test to be done and left. This time patient is agreeable to do the stress test. Patient was admitted to the floor and stress test was done and was negative for acute ischemia, troponins were negative, EKG normal sinus rhythm. Patient's chest pain resolved and discharged home in a stable condition. 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 The patient appeared well nourished and normally developed. Vital signs as documented. Head exam is unremarkable. No scleral icterus . Neck is without jugular venous distension, thyromegaly, or carotid bruits. Lungs are clear to auscultation. Cardiac exam reveals regular rate and Rhythm. Abdominal exam reveals normal bowel sounds. Extremities are nonedematous and both femoral and pedal pulses are normal. ICING MAKER: Alert and oriented 3. No focal weakness. - Constitutional Vitals: Temp Pulse Resp BP Pulse Ox 98.9 F 66 18 128/78 96 06/13/18 07:26 06/13/18 11:35 06/13/18 07:26 06/13/18 11:35 06/13/18 07:26 Plan Activity: no restrictions Weight Bearing Status: Full Weight Bearing Diet: low cholesterol, low salt, diabetic [facility]Other[facility] - 7 Days
[2018-06-13 14:38] VITALS: BP 150/91
--- NOTE | 2018-06-13 19:58 | Treadmill Report ---
INDICATION: Chest pain. ORDERING PHYSICIAN: Dr. York. FINDINGS: There is evidence of a moderate sized fixed inferior wall defect noted on both rest and stress imaging. There is no scintigraphic evidence of myocardial ischemia. The left ventricle is normal in size. The left ventricular ejection fraction is measured at 58%. There is normal wall motion and wall thickening noted on gated imaging. CONCLUSION: 1. No scintigraphic evidence of myocardial ischemia. 2. Moderate size fixed mid and basal inferior wall defect of moderate intensity consistent with diaphragmatic attenuation. 3. Normal left ventricular size and systolic function. 4. This is a low risk myocardial perfusion SPECT scan associated with 1-year cardiovascular event rate of less than 1%. [facility]# [id number] USHA/LAQUITA
== END 2018-06-13 17:28 | disposition home or self-care (01) | DRG 313 ==
LOC: ED 08:25 → 2B-ACE 12:26
PROVIDERS: ADMIT Internal Medicine; ATTEND Internal Medicine
DX: R07.89 Other chest pain (principal); E11.9 Type 2 diabetes mellitus without complications; I10 Essential (primary) hypertension; Z86.73 Personal history of transient ischemic attack (TIA), and cerebral infarction without residual deficits; Z87.891 Personal history of nicotine dependence
CPT/HCPCS: 36415; 71045; 78452; 80053; 82962; 84484; 85025; 87116; 93005; 93010; 93017; G0378; A9502; J2270; J2785

== ENCOUNTER 2018-06-26 00:41 | Emergency (ER) | payer MEDICARE ==
[2018-06-26 01:29] LABS: Basophils % (Auto) 0.3 % (0.0-1.8); Eosinophils # (Auto) 0.1 K/mm3 (0.0-0.4); Eosinophils % (Auto) 0.9 % (0.0-4.3); Lymphocytes # (Auto) 1.4 K/mm3 (1.2-5.4); Lymphocytes % (Auto) 20.5 % (13.4-35.0); Mean Corpuscular HGB Conc 34 % (32-34); Mean Corpuscular Volume 97 fl (84-94); Monocytes # (Auto) 0.6 K/mm3 (0.0-0.8); Platelet Count 122 K/mm3 (140-440); Red Blood Count 3.92 M/mm3 (3.65-5.03); Red Cell Distribution Width 12.9 % (13.2-15.2)
--- NOTE | 2018-06-26 01:40 | XRay Report ---
PROCEDURE: XR CHEST 1V AP TECHNIQUE: Chest radiograph single view. HISTORY: Chest Pain COMPARISONS: 06/04/2018 . FINDINGS: Heart: Normal. Mediastinum/Vessels: Normal. Lungs/Pleural space: There are no infiltrates or effusions. There is a small calcified granuloma in the left lung base.. Bony thorax: No acute osseous abnormality. Life support devices: None. IMPRESSION: No acute cardiopulmonary abnormality. This document is electronically signed by Griffin Zamudio MD., Jun 26 2018 01:37:50 AM ET
[2018-06-26 01:49] LABS: BUN/Creatinine Ratio 10; Blood Urea Nitrogen 13 mg/dL (9-20); Calcium 9.1 mg/dL (8.4-10.2); Hemolysis Index 3
[2018-06-26] MEDS ORDERED: TORADOL IV ONE (03:54)
--- NOTE | 2018-06-26 04:14 | Emergency Department Report ---
ED Peds Dyspnea HPI - General Chief Complaint: Dyspnea/Respdistress Stated Complaint: CHEST PAIN Time Seen by Provider: 06/26/18 03:12 Source: EMS Mode of arrival: Stretcher Limitations: No Limitations - History of Present Illness Initial Comments: 72-year-old male with a past medical history of previous CVA, diabetes, hypertension presents to Hospital with complaints of right-sided chest pain happened prior to arrival with shortness of breath. Patient complains of right lower anterior chest wall pain that has since resolved. He complains of feeling "a little shortness of breath". No signs of respiratory distress at this time. 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 He states this is chronic and denies any new deficits. Patient has been admitted here June 04 and June 12 for chest pain workup. Initially refused stress test but did have a stress test performed on June 13 which was negative. He currently does not have a place to live - Related Data Previous Rx's Medication Instructions Recorded Last Taken Type Aspirin [Aspirin BABY CHEW TAB] 81 mg PO QDAY tab.chew 06/05/18 Unknown Rx Lisinopril [Zestril TAB] 10 mg PO QDAY tablet 06/05/18 Unknown Rx Lispro Insulin [HumaLOG] 0 unit SUB-Q ACHS units 06/05/18 Unknown Rx Metoprolol [Lopressor TAB] 12.5 mg PO BID tablet 06/05/18 Unknown Rx metFORMIN [Glucophage] 500 mg PO BIDDIAB tablet 06/05/18 Unknown Rx Allergies Allergy/AdvReac Type Severity Reaction Status Date / Time No Known Allergies Allergy Unverified 06/04/18 11:44 ED Review of Systems ROS: Stated complaint: CHEST PAIN Other details as noted in HPI Comment: All other systems reviewed and negative Pediatric Past Medical History - Chronic Health Problems Hx Diabetes: Yes ED Peds Dyspnea EXAM - General Limitations: No Limitations - Other Other Exam Information: General: No limitations, patient is alert in no acute distress Head exam: Atraumatic, normocephalic Eyes exam: Normal appearance ENT: Moist mucous membrane, normal oropharynx Neck exam: Normal inspection, full range of motion, no meningismus nontender Respiratory exam: Clear to auscultation bilateral, no wheezes, rales, crackles Cardiovascular: Normal rate and rhythm, positive systolic murmur Abdomen: Soft, nondistended, and nontender, with normal bowel sounds, no rebound, or guarding Extremity: Full range of motion normal inspection no deformity, no calf tenderness or edema Back: Normal Inspection, full range of motion, no tenderness Neurologic: Alert, oriented x3, cranial nerves intact, no motor or sensory deficit Psychiatric: normal affect, normal mood Skin: Warm, dry, intact ED Course Vital Signs 06/26/18 06/26/18 06/26/18 01:26 01:28 03:24 Temperature 98.2 F Pulse Rate 63 64 Respiratory 15 15 13 Rate Blood Pressure 107/61 101/67 [Left] O2 Sat by Pulse 99 100 97 Oximetry 06/26/18 04:51 Temperature Pulse Rate 68 Respiratory 14 Rate Blood Pressure 116/76 [Left] O2 Sat by Pulse 98 Oximetry ED Medical Decision Making - Lab Data Result diagrams: 06/26/18 01:22 06/26/18 01:22 Lab Results 06/26/18 06/26/18 06/26/18 Range/Units 01:22 01:22 01:22 WBC 6.8 (4.5-11.0) K/mm3 RBC 3.92 (3.65-5.03) M/mm3 Hgb 13.0 (11.8-15.2) gm/dl Hct 38.0 (35.5-45.6) % MCV 97 H (84-94) fl MCH 33 H (28-32) pg MCHC 34 (32-34) % RDW 12.9 L (13.2-15.2) % Plt Count 122 L (140-440) K/mm3 Lymph % (Auto) 20.5 (13.4-35.0) % [place] % (Auto) 9.0 H (0.0-7.3) % Eos % (Auto) 0.9 (0.0-4.3) % Baso % (Auto) 0.3 (0.0-1.8) % Lymph # 1.4 (1.2-5.4) K/mm3 [place] # 0.6 (0.0-0.8) K/mm3 Eos # 0.1 (0.0-0.4) K/mm3 Baso # 0.0 (0.0-0.1) K/mm3 Seg Neutrophils % 69.3 (40.0-70.0) % Seg Neutrophils # 4.7 (1.8-7.7) K/mm3 D-Dimer 161.30 (0-234) ng/mlDDU Sodium 141 (137-145) mmol/L Potassium 3.8 (3.6-5.0) mmol/L Chloride 105.5 (98-107) mmol/L Carbon Dioxide 26 (22-30) mmol/L Anion Gap 13 mmol/L BUN 13 (9-20) mg/dL Creatinine 1.3 (0.8-1.5) mg/dL Estimated GFR > 60 ml/min BUN/Creatinine Ratio 10 % Glucose 105 H (75-100) mg/dL Calcium 9.1 (8.4-10.2) mg/dL Troponin T < 0.010 (0.00-0.029) ng/mL - EKG Data -: EKG Interpreted by Me EKG shows normal: sinus rhythm, axis (qrs 32), QRS complexes (qrsd 84), ST-T waves (no stemi) Rate: normal (64) - EKG Data When compared to previous EKG there are: no significant change - Radiology Data Radiology results: report reviewed PROCEDURE: XR CHEST 1V AP TECHNIQUE: Chest radiograph single view. HISTORY: Chest Pain COMPARISONS: 06/04/2018 . FINDINGS: Heart: Normal. Mediastinum/Vessels: Normal. Lungs/Pleural space: There are no infiltrates or effusions. There is a small calcified granuloma in the left lung base.. Bony thorax: No acute osseous abnormality. Life support devices: None. IMPRESSION: No acute cardiopulmonary abnormality. - Medical Decision Making ddimer neg pain right sided recent neg trop and stress test cxr neg plan to d/c home - Differential Diagnosis pe, mi, unstable angia, pneumothorax. Critical Care Time: No Critical care attestation.: If time is entered above; I have spent that time in minutes in the direct care of this critically ill patient, excluding procedure time. ED Disposition Clinical Impression: Atypical chest pain Disposition: DC-01 TO HOME OR SELFCARE Is pt being admited?: No Does the pt Need Aspirin: No Condition: Stable Instructions: Chest Pain (ED) Additional Instructions: Take Motrin or Tylenol as a pain.. Follow up with your doctor or the clinic/doctor provided. Return if symptoms worsen as indicated by your discharge instructions Referrals: BOB MULLER MD [Primary Care Provider] - 3-5 Days Time of Disposition: 05:49
[2018-06-26 04:53] VITALS: BP 116/76
== END 2018-06-26 06:04 | disposition home or self-care (01) ==
LOC: ED 00:41
DX: R07.89 Other chest pain (principal); I10 Essential (primary) hypertension; E11.9 Type 2 diabetes mellitus without complications; Z79.82 Long term (current) use of aspirin
CPT/HCPCS: 36415; 71045; 80048; 84484; 85025; 85379; 93005; 93010; 96374; 99284; J1885